=== PATIENT | male | born 1980 | race Caucasian/White ===

== ENCOUNTER 2021-06-25 15:32 | Emergency (ER) | payer OTHER ==
[~2021-06-25] VITALS: Ht 160 cm; Wt 49.9 kg
[~2021-06-25 15:32] MED LIST: CIPRO500 M1 PO; NAPROSYN500 MG PO; NORCO 5-325 TA1 EAC1 PO; ONDANSETRON HCL4 M2 PO; ZOFRAN ODT4 MG DISSOLVE
[2021-06-25 16:38] LABS: URINE BILIRUBIN NEGATIVE (Negative); URINE BLOOD 1+ (Negative); URINE CLARITY SL CLOUDY; URINE COLOR YELLOW; URINE GLUCOSE-RANDOM* NEGATIVE (Negative); URINE KETONES NEGATIVE (Negative); URINE LEUKOCYTES-REFLEX NEGATIVE (Negative); URINE NITRITE-REFLEX NEGATIVE (Negative); URINE PROTEIN (DIPSTICK) 2+ (Negative); URINE SPECIFIC GRAVITY >= 1.030 (1.005-1.035)
[2021-06-25 16:39] LABS: ABSOLUTE NEUTROPHILS 4.7 thou/uL (1.4-8.2); BASOPHILS 0.8 % (0.0-2.0); EOSINOPHILS 0.6 % (0.0-3.0); HEMATOCRIT 41.1 % (42.0-52.0); LYMPHOCYTES 9.4 % (24.0-44.0); MCH 34.3 pg (26.0-34.0); MCHC 34.2 g/dL (28.0-37.0); MCV 100.1 fL (80.0-100.0); MONOCYTES 13.8 % (1.0-8.0); PLATELET COUNT 87 thou/uL (150-400); POLYS 75.4 % (36.0-66.0); RDW 13.4 % (10.5-14.5); WBC 6.3 thou/uL (4.0-11.0)
[2021-06-25 16:43] LABS: SQUAMOUS 0-3 Few /LPF (0-3)
[2021-06-25 16:47] LABS: AMP/METHAMP Negative (Negative); BARBITURATES Negative (Negative); BENZODIAZEPINES Negative (Negative); COCAINE Negative (Negative); METHADONE Negative (Negative); OPIATES Negative (Negative); PCP Negative (Negative)
[2021-06-25 16:49] LABS: CASTS None Seen /LPF (None Seen); URINE RBC 1-2 Rare /HPF (NONE SEEN); URINE WBC-REFLEX 0-5 Rare /HPF (0-5)
[2021-06-25 16:50] LABS: BACTERIA-REFLEX 1-9 Few /HPF (None Seen); CRYSTALS None Seen /LPF (None Seen)
[2021-06-25 16:53] LABS: APTT 25.8 Seconds (24.5-32.8); PROTIME 10.9 Seconds (10.5-12.1)
[2021-06-25 16:55] LABS: CALCIUM 9.3 mg/dL (8.5-10.1); POTASSIUM 3.8 mmol/L (3.5-5.1)
--- NOTE | 2021-06-25 16:57 | EKG ---
[address] [place] [address] ELECTROCARDIOGRAM REPORT Name: LILIAN LANZA Room #: REG MOUNIKA Hayden#: [id number] Admission: 06/25/21 Attend Phys: Discharge: Date of : 76 Report #: [id number] [facility] ED Test Date: 2021-06-25 Test Time: 16:49:33 Pat Name: LILIAN LANZA Department: Room: Gender: M It Account Manager: FRANTZ : 1980 Requested By: Shama Petersen Order Number: [id number] MD: Kingston Orozco Measurements Intervals [place] Rate: 86 P: 78 SC: 164 QRS: 67 QRSD: 82 T: 45 QT: 356 QTc: 426 Interpretive Statements Sinus rhythm Normal tracing No previous ECG available for comparison Electronically Signed On 06-25-2021 16:57:25 HAND ETCHER by Kingston Orozco [email or web address] <ELECTRONICALLY SIGNED> By: Kingston Orozco MD, [facility] 06/25/21 1657 [id number] 1649 Kingston Orozco MD, FACC /EPI
[2021-06-25 17:05] LABS: ALBUMIN 4.1 g/dL (3.4-5.0); MAGNESIUM 1.7 mg/dL (1.8-2.4); TOTAL BILIRUBIN 0.9 mg/dL (0.2-1.0); TOTAL PROTEIN 7.6 g/dL (6.4-8.2)
[2021-06-25 18:32] VITALS: BP 123/93
== END 2021-06-25 18:32 | disposition left against medical advice (07) ==
LOC: ER 15:32
PROVIDERS: Physician Assistant
DX: R56.9 Unspecified convulsions (principal); Z20.822 Contact with and (suspected) exposure to COVID-19; F10.139 Alcohol abuse with withdrawal, unspecified; Z98.890 Other specified postprocedural states; Z79.899 Other long term (current) drug therapy; Y90.0 Blood alcohol level of less than 20 mg/100 ml